=== PATIENT | female | born 1995 | race Caucasian/White ===

== ENCOUNTER 2017-03-25 05:07 | Emergency (ER) | payer OTHER ==
[~2017-03-25] VITALS: Ht 160 cm; Wt 51.8 kg
[~2017-03-25 05:07] MED LIST: NAPR500T5 PO
[2017-03-25 05:15] VITALS: BP 106/66; PULSE 91; RESP 16; O2SAT 98
--- NOTE | 2017-03-25 05:23 | ED.REPORT ---
HPI-Extremity Problem Lower Date of Service Mar 25, 2017 ED Provider: Dr. Anil Ramirez M.D. The patient is a healthy 21 year old female who presents to the ED with a right heel injury onset one week ago. The patient stomped hard on her kitchen floor, with immediate pain and swelling. She denies additional injury/trauma or other symptoms. The patient has been able to ambulate since onset. Nursing Notes Stated Complaint: FRACTURED R HEEL Chief Complaint: Extremity Trauma Nursing Notes Reviewed: Yes Allergies: Coded Allergies: clavulanic acid (Verified Adverse Reaction, Intermediate, DIARRHEA, ) amoxicillin (Verified Adverse Reaction, Unknown, DIARRHEA FROMA AUGMENTIN , 05/12/16) Scheduled PRN Naproxen (Naproxen) 500 Mg Tablet.dr 500 MG PO BID PRN PRN For Pain General Time Seen by MD: 05:30 Chief Complaint Other (Right Heel Injury) Hx Obtained From: Patient Arrived By: Walk-in Onset Occurred: 1 week ago Symptom Duration: Since onset Location: : Foot right (Heel) Quality: Painful Severity: Current: Moderate Severity: Maximum: Moderate Pertinent Negative: Relieved by nothing Immunizations: Unknown Recent Healthcare: No recent doctor visit Past Medical History Past Medical History None Past Surgical History Reports: Cholecystectomy Smoking History Current Every Day Smoker Social History Alcohol Use: "Social" Drug Use: THC Ambulatory Status Independent Review of Systems Review of Systems Note: + Right heel injury Constitutional: Denies: Fever Musculoskeletal: Reports: Extremity pain (Right heel), Extremity swelling ( Right heel) Neurologic: Denies: Problem walking Complete sys rev & neg: except as marked. Respiratory: Denies: Non-productive cough, Shortness of breath GI: Denies: Diarrhea, Vomiting Physical Exam Initial Vital Signs Vital Signs (First) Date Time Temp Pulse Resp B/P Pulse Ox O2 Delivery O2 Flow Rate FiO2 03/25/17 05:15 36.8 91 16 106/66 98 Room Air Initial VS: Reviewed, Vital signs normal Head / Eyes: Atraumatic, Normocephalic ENT: Conjunctiva normal, No scleral icterus Neck: Supple, Full range of motion Skin: Warm, Dry, No cyanosis Neurologic: Alert, Oriented, Nonfocal Psychiatric: Mood/affect normal, Behavior normal, Normal thought content Ankle / Foot: Neurologic intact, Vascular intact, No ligamentous injury, Tendon function NL Right Foot: Positive: Tender calcaneous (Lateral and medial aspects) No swelling or ecchymosis of right heel or ankle General/Constitutional: Awake, Alert, No acute distress Interpretation & Diagnostics Lab Results Interpretation Test 03/25/17 05:30 Hold Urine Received (Received) X-Ray Interpretation Xray Interpretation: No fracture Study Performed: 3 View X-Ray Ordered: Foot right Interpretation / Wet Read by: Abiola read ED physician Re-Eval/Medical Decision Med Decision/Clinical Course 21-year-old female with sore heel since she stopped her foot on the hard kitchen floor a week ago. She is ambulatory with some discomfort. On physical exam there is minimal swelling, no ecchymosis, and only mild tenderness of the heel bone. X-ray examination is negative. Source of Hx: Old records Re-Evaluation/Progress : Time of Eval: :17 Patient Status: Condition improved Re-Evaluation/Progress Note: Discussed with patient x-ray results, diagnosis, and plan for discharge. Follow-up and return to the ER instructions given. Patient agrees with plan for care and all questions were addressed. Counseled Regarding: Diagnosis, Need for follow-up, When/why to return to ED Discharge & Departure Impression: Primary Impression: Injury of right heel Encounter type: initial encounter Qualified Code: S99.921A - Unspecified injury of right foot, initial encounter Disposition: Home Discharge Condition All VS Reviewed: Yes Condition: Improved Patient Instructions: Contusion in Adults (ED) Additional Instructions: Thank you for entrusting us with your care. Your x-ray did not indicate a fracture. Call your primary care provider for a follow-up appointment if symptoms do not resolve in one week. Return to the ER with any new or worsening symptoms. Referrals: Vannesa Manuel MD (PCP) Zafar Attestation Portions of this note were transcribed by Za Beavers. I, Dr. Ramirez, personally performed the history, physical exam, and medical decision-making; I reviewed and confirmed the accuracy of the information in the transcribed note. Signed by: Zafar Goldstein, 03/25/2017, 06:35 copies to: Vannesa Manuel MD, Howard L MD Mar 25, 2017 05:23 ZA BEAVERS Mar 25, 2017 05:26
--- NOTE | 2017-03-25 09:00 | DRSVH ---
PROCEDURE: X-RAY RIGHT FOOT COMPLETE, MINIMUM THREE VIEWS ([id number]) INDICATIONS: pain in heel TECHNIQUE: 3 views of the foot were acquired. COMPARISON: None. FINDINGS: Bones: No fractures or dislocations. No suspicious bony lesions. Of note, tripartite sesamoid invo lving the first metatarsus. Soft tissues: No tibiotalar joint effusion. Achilles tendon appears normal. IMPRESSION: No displaced fracture seen. If there is continued pain, followup exam or additional rhonda ging such as MRI or CT could be performed for further assessment. Dictated by: Forest Mera RRA Interpreted: Madison Burris MD on 03/25/2017 at 8:59 Transcribed by: SOUMYA on 03/25/2017 at 8:59 Approved by: Madison Burris M.D. on 03/25/2017 at 11:28
== END 2017-03-25 06:39 | disposition home or self-care (01) ==
LOC: SED 05:07
DX: S99.921A Unspecified injury of right foot, initial encounter (principal); W22.09XA Striking against other stationary object, initial encounter; Y93.89 Activity, other specified; Y99.8 Other external cause status; Y92.010 Kitchen of single-family (private) house as the place of occurrence of the external cause; F17.200 Nicotine dependence, unspecified, uncomplicated; F12.10 Cannabis abuse, uncomplicated; Z90.49 Acquired absence of other specified parts of digestive tract; Z88.0 Allergy status to penicillin; Z88.8 Allergy status to other drugs, medicaments and biological substances